=== PATIENT | female | born 1955 | race Caucasian/White ===

== ENCOUNTER 2019-07-28 06:06 | Observation (INO) | payer BC, OTHER ==
[~2019-07-28 06:06] MED LIST: EXCEDRIN MIGRA1 EAC1 PO; FLUTICASONE PRO30 G1 NASAL; HYDROCODON-ACE1 EAC8 PO; LEVO-T25 MCG PO; LINZESS145 MCG PO; OMEPRAZOLE40 MG PO; PEPCID40 MG PO; PROAIR HFA8.5 GM INH; ZOLPIDEM TARTRA10 MG PO
[2019-07-28 06:40] LABS: HEMATOCRIT 38.3 % (37.0-47.0); HEMOGLOBIN 12.8 gm/dL (12.0-15.0); MCH 28.8 pg (26.0-34.0); MCHC 33.5 g/dL (28.0-37.0); MCV 86.1 fL (80.0-100.0); MPV 8.1 fl. (7.2-11.1); RBC 4.45 mil/uL (4.20-5.00); RDW-CV 14.1 % (10.5-14.5); WBC 6.3 thou/uL (4.0-11.0)
[2019-07-28 06:46] LABS: CALCIUM 8.6 mg/dL (8.5-10.1); CREATININE 1.1 mg/dL (0.6-1.3)
--- NOTE | 2019-07-28 08:31 | EKG ---
[place] [address] ELECTROCARDIOGRAM REPORT Name: EMILY OQUENDO Room: [address]R.#: [id number] Admission: 07/28/19 Attend Phys: Adam Paulino Discharge: Date of : 57 Date of Service: 07/28/19 0636 Report #: [id number] THIS REPORT FOR: //name// [facility] Test Date: 2019-07-28 Test Time: 06:36:10 Pat Name: EMILY OQUENDO Department: Room: [place] [address] Gender: F Hemstitcher: ADDIS : 1955 Requested By: Adam Yeboah Order Number: [id number] Riki MD: Thang Noriega Measurements Intervals [place] Rate: 58 P: 70 VT: 148 QRS: 17 QRSD: 98 T: 23 QT: 446 QTc: 439 Interpretive Statements Sinus rhythm Low voltage, precordial leads Baseline wander in lead(s) V4 No previous ECG available for comparison Electronically Signed On 07-28-2019 8:29:20 CDT by Thang Noriega [email or web address] <ELECTRONICALLY SIGNED> By: Thang Noriega MD, FACC 07/28/19 0829 0636 0636 Thang Noriega MD, [facility] /EPI
[2019-07-28 11:19] VITALS: BP 136/74
[2019-07-28 16:00] VITALS: BP 152/91
[2019-07-28 20:00] VITALS: BP 128/80
[2019-07-29] VITALS: BP 150/88
[2019-07-29 07:50] VITALS: BP 128/79
[2019-07-29 11:48] VITALS: BP 128/79
--- NOTE | 2019-08-05 13:17 | OP ---
[facility] [address] [place] [address] OPERATIVE REPORT Name: EMILY OQUENDO Room: [address] [place]#: [id number] Admission: 07/28/19 Attend Phys: Adam Yeboah Discharge: 07/29/19 Date of : 57 Report #: [id number] THIS REPORT FOR: //name// cc: Shakira Cox MD, K. Gay MD ~ THIS REPORT FOR: //name// CC: Adam Cox DATE OF SERVICE: 07/28/2019 PREOPERATIVE DIAGNOSIS: Hiatal hernia after a Brayan-en-Y gastric bypass. POSTOPERATIVE DIAGNOSIS: Hiatal hernia after a Brayan-en-Y gastric bypass. OPERATION: Laparoscopic repair of hiatal hernia without mesh implantation without fundoplication. SURGEON: Adam Yeboah MD HIV COUNSELOR: Abdiel Lockhart MD ANESTHESIA: General. ESTIMATED BLOOD LOSS: Minimal. SPECIMEN: None. DESCRIPTION OF PROCEDURE: After informed consent was obtained, the patient was brought to the operating room and placed supine. SCDs were placed and working, preoperative antibiotics were administered, general anesthesia was induced. The abdomen was then prepped and draped in the usual sterile fashion. A 5 mm incision was made in the left upper quadrant. A 5 mm trocar was placed under direct vision. Pneumoperitoneum was established. A supraumbilical 5 mm trocar was then placed under direct vision. I then placed a left sided 5 mm and a left sided 12 mm trocar. An epigastric incision was made measuring approximately 5 mm. The Nathansen retractor was placed through this. The Nathansen retractor was then used to retract the liver superiorly and it was fastened down to its outer attachment. This allowed me for good visualization of the hiatus. I then inspected the hiatus. The stomach was then grasped and retracted inferiorly. I could see the small bowel from the gastrojejunal anastomosis where it went to the anastomosis. She had a hiatal [place] [id number] OPERATIVE REPORT Name: EMILY OQUENDO Room: [address] [place]#: [id number] Admission: 07/28/19 Attend Phys: Adam Yeboah Discharge: 07/29/19 Date of : 57 Report #: [id number] grasping the gastric pouch, which was mostly in the stomach. It was grasped gently and retracted inferiorly. I was able to fully reduce the hiatal hernia. I was able to fully expose the distal esophagus and do a full 360 mediastinal dissection to approximately 5 cm of the distal esophagus. At this point, Dr. Lockhart, a bariatric surgeon began by inspecting the GE junction. He performed a cruroplasty by suturing the posterior crura closed with a 2-0 Ethibond suture in [id number] fashion. Two such sutures were placed by Dr. Lockhart. He also placed a stitch on the right side of the esophagus and the left side of the esophagus attaching it to the crura, so it would not ride back up into the mediastinum. After this had been done, the gastric pouch was fully visible in the abdomen. It did not appear too loose or too tight. The liver was then placed back into its anatomic position. The skin was then closed with 4-0 Monocryl. The 12 mm trocar fascia was closed with a [id number]-[id number] 0 Vicryl. Skin was closed with 4-0 Monocryl and sealed with Dermabond. COMPLICATIONS: None. DISPOSITION: The patient was taken to recovery in satisfactory condition. <ELECTRONICALLY SIGNED> By: Adam Yeboah MD 08/05/19 1317 1011 [id number] Yeboah MD /nt
== END 2019-07-29 11:57 | disposition home or self-care (01) ==
LOC: M.TBA 06:06 → M.3W 06:06 → M.TBA 06:06 → M.PRE 06:54 → M.3W 10:16 → M.PRE 10:21 → M.3W 07-29 11:57
PROVIDERS: ADMIT Surgery; ATTEND Surgery
DX: Z03.818 Encounter for observation for suspected exposure to other biological agents ruled out (principal); K44.9 Diaphragmatic hernia without obstruction or gangrene; K21.9 Gastro-esophageal reflux disease without esophagitis; R10.13 Epigastric pain